=== PATIENT | male | born 1980 | race Caucasian/White ===

== ENCOUNTER 2023-04-15 23:31 | Inpatient (IN) | payer OTHER, SELFPAY ==
[2023-04-15 20:00] VITALS: BP 170/94
[2023-04-15 20:18] VITALS: BMI 25.3
[2023-04-15 20:37] LABS: % Basophils 0.4 % (0-2); % Eosinophils 0.1 % (0-6); % Immature Granulocytes 1.2 % (0-0.5); % Lymphocytes 2.2 % (20.5-51.1); % Monocytes 6.2 % (1.7-9.3); % Neutrophils 89.9 % (42.2-75.2); Absolute Basophils 0.1 10^3/uL (0-0.2); Absolute Immature Granulocytes 0.3 10^3/uL (0-0.05); Absolute Lymphocytes 0.6 10^3/uL (1.2-3.4); Absolute Monocytes 1.6 10^3/uL (0.1-0.6); Absolute Neutrophils 23.8 10^3/uL (1.4-6.5); Hematocrit 46.1 % (39.0-52.0); Mean Corp Hgb Conc. 34.7 g/dL (33.0-37.0); Mean Corpuscular Hgb 27.4 pg (27.0-31.0); Mean Corpuscular Volume 78.8 fL (80.0-94.0); Mean Platelet Volume 9.1 fL (7.4-10.4); Nucleated Red Blood Cells % 0 % (-); Platelet Count 520 10^3/uL (130-400); Red Blood Cell Count 5.85 10^6/uL (4.70-6.10); Red Cell Dist. Width 12.7 % (11.5-14.5); White Blood Cell Count 26.4 10^3/uL (4.8-10.8)
--- NOTE | 2023-04-15 20:38 | ED.GENMED ---
History of Present Illness
<JOHNY Adams - Last Filed: 04/15/23 22:54>
General
Chief Complaint: Withdrawal Symptoms
Source: patient
Exam Limitations: none
Time Seen by Provider: 04/15/23 20:21
Travel History
Have you had any contact with someone who has COVID-19?: No
Do you have any symptoms of coronavirus? Fever > 100 degrees, chills, cough, shortness of breath, sore throat, loss of taste or smell, muscle aches, or headache?: No
History of Present Illness
History of Present Illness:
This is a 42 year old male that [facility] with c/o withdraw. States that he uses Fentanyl 50 bags daily. States that he last used at 8pm last night. States that he is withdrawing. States that he is sweating, nausea, vomiting,
diarrhea, can't sit still. State that he has some chest discomfort with slight SOB and headache. States that he has chills, dizziness. Denies any fever, urinary burning.
Past History
<JOHNY Adams - Last Filed: 04/15/23 22:54>
Past History
ED Past Medical History: HTN, Psychiatric (Depression) and Other (Polysubstance abuse, Hep C, )
ED Past Surgical History: None and Urological (Renal calculus removal X 2)
Social History
Tobacco: Smoker
Alcohol: None
Drug: Other (Methamphetamine and fentanyl)
Personal: Single
[facility]: [facility]
Review of Systems
<JOHNY Adams - Last Filed: 04/15/23 22:54>
Review of Systems
All Other Systems: ROS reviewed and negative except as documented in HPI and ROS
Constitutional: Reports chills and other (Sweating); Denies fever
EENT: Reports no symptoms
Respiratory: Reports trouble breathing (Slight); Denies cough
Cardiac: Reports chest pain
ABD/GI: Reports abdominal pain, nausea, vomiting and diarrhea
: Reports no symptoms; Denies dysuria, frequency or urgency
Musculoskeletal: Reports no symptoms
Skin: Reports no symptoms
Neurological: Reports dizzy and headache
Psychiatric: Reports no symptoms
Phy Exam
<JOHNY Adams - Last Filed: 04/15/23 22:54>
General Physical Exam
General Presentation: mild distress
General age: appears stated age
General Skin: diaphoretic
General Habitus: normal
General Mental: alert
General Hydration: appears well hydrated
ENT Exam
ENT Exam: TM's normal, pharynx normal and neck supple
Eye Exam
Eye Exam: other (dilated but equal )
Cardiovascular Exam
Cardiovascular Exam: regular rate/rhythm, no edema, no murmur and normal peripheral pulses
Pulmonary Exam
Pulmonary Exam: lungs clear, no respiratory distress, no rales, chest non tender, no crackles, no rhonchi, no wheezing and no cough
Gastrointestinal Exam
Gastrointestinal Exam: soft, no organomegaly, no pulsatile mass, non distended, tender (Generalized tenderness with palpation) and other (Hypoactive bowel sounds)
Musculoskeletal Exam
Musculoskeletal Exam: full ROM and no edema
Skin Exam
Skin Exam: normal color, no rash, no petechia and diaphoresis
Psychiatric Exam
Psychiatric Exam: normal mood/affect
Scores
<JOHNY Adams - Last Filed: 04/15/23 22:54>
COW Clinical Opiate Withdrawal Scale
Resting Pulse Rate: 81-100
Sweating-over past 30min not from room temp or activity: Flushed or observable moistness on face
Restlessness-observation during assessment: Reports difficulty sittin
Pupil Size: Pupils moderately dilated
Bone or Joint Aches: Not present
Runny Nose or Tearing-not accounted for by cold/allergies: Not present
GI Upset-over last 30min: Multiple episodes of diarrhea or vomiting
Tremor-observation of outstretched hands: Tremor can be felt, but not observed
Yawning-observation during assessment: Yawning once or twice during assessment
Anxiety or Irritability: Patient reports increasing irritability or anxiousness
Gooseflesh Skin: Skin is smooth
Score: 14
Withdrawal Severity: Moderate Withdrawal, consider starting Suboxone
<Eusebio Palacios DO - Last Filed: 04/16/23 01:43>
COW Clinical Opiate Withdrawal Scale
Score: 14
Withdrawal Severity: Moderate Withdrawal, consider starting Suboxone
Course
<JOHNY Adams - Last Filed: 04/15/23 22:54>
Orders/Labs/Results
Orders:
Orders
04/15/23 20:24
Cardiac Monitoring- Treatment ONCE
IV Insert/Care/Rem.- Treatment PRN
Pulse Ox/spot Check [RESP] Urgent
Quantity: 1
04/15/23 20:27
Complete Blood Count/With Diff Urgent
Comprehensive Metabolic Panel Urgent
Troponin I Urgent
04/15/23 20:37
Urine Drug Abuse Screen Urgent
0.9% Sodium Chloride 1000 ml [Nss] 1,000 ml IV BOLUS
Lorazepam [Ativan] 1 mg IV NOW STA
Ondansetron Injectable [Zofran] 8 mg IV NOW STA
04/15/23 20:38
Urinalysis Reflex To Culture Urgent
04/15/23 20:52
Electrocardiogram (*1) Urgent
Reason for Study: Chest Pain
EKG- Treatment ONCE
04/15/23 21:11
Buprenorphine [Subutex] 8 mg SL NOW STA
04/15/23 22:45
Diphenhydramine [Benadryl] 25 mg IV NOW STA
Prochlorperazine [Compazine] 5 mg IV NOW STA
04/15/23 22:52
Urine Drug Abuse Screen Stat
Buprenorphine [Subutex] 16 mg SL NOW STA
04/15/23 22:53
0.9% Sodium Chloride 1000 ml [Nss] 1,000 ml IV BOLUS
04/15/23 23:00
Pantoprazole 80 mg/100 ml Nss [Protonix] 80 mg in 100 ml IV NOW
Pantoprazole [Protonix IV] 80 mg IV NOW STA
04/15/23 23:03
Admit/Transfer Patient As Directed
Co-Sign Provider:
Level of Care: Inpatient admission
Assign to:: ICU
Physician / Group: Rafaela
Diagnosis: Opioid withdrawal
Reason for Hospitalization: Opioid withdrawal
Expected length of stay greater than two midnights?: Yes
ELOS- Estimated Length of Stay in days: 6
I certify the patient meets the requirements for IP care: Yes
04/15/23 23:09
Code Status As Directed
Resuscitation Status: Full Code
04/15/23 23:15
CR Chest Portable - 1 View Stat
Comment:
Reason For Exam: leukocytosis
Reason Study Needs to be Portable: Patient Unstable
04/15/23 23:17
Lorazepam [Ativan] 1 mg IV Q4HPRN PRN
04/15/23 23:25
Alcohol Stat
Blood Culture Q30M
BRIANA Source: Blood/Venous
Specimen Description:
Blood Culture Q30M
BRIANA Source: Blood/Venous
Specimen Description:
04/15/23 23:27
0.9% Sodium Chloride [Nss (Preservative Free)] 0.5 ml IV Q4HPRN PRN
04/16/23 00:49
Buprenorphine [Subutex] 8 mg SL PRN PRN
Cefepime HCl [Maxipime] 2,000 mg IV Q8H
Clonidine [Catapres] 0.1 mg PO Q6
Dextrose 5%/0.45%Sodchl 1000ML [D5/0.45%NaCl] 1,000 ml IV 125 mls/hr
Loperamide [Imodium] 2 mg PO Q4HPRN PRN
Ondansetron Injectable [Zofran] 4 mg IV Q6HPRN PRN
Tizanidine [Zanaflex] 2 mg PO Q6HPRN PRN
VANCOMYCIN Pharmacy to Dose [VANCOCIN Pharmacy to Dose] 1 each Pharmacy To Prepare [Call Pharmacy To Prepare] 0 ml IV PER PROTOCOL
04/16/23 00:49
Electrocardiogram (*1) Routine
Reason for Study: QTc Monitoring
Comment: if not already done in ED
GASTROINTESTINAL CONSULT Routine
Consulting Provider: Lurdes Hernandez
Was physician already notified: Yes
Reason for consult: coffee ground emesis
Fentanyl, Urine Urgent
Ferritin Routine
Iron Routine
Magnesium Routine
Comment: can be add on
Total Iron Binding Routine
Activity As Directed
Activity Level: With Assistance
Capnography/ETCO2 As Directed
Clinical Opioid Withdrawal Scale (COWS) Q1
Pneumatic Compression Sleeves As Directed
Type: Knee high
Vital Signs As Directed
Frequency: Per unit guidelines
DX Deep Vein Thrombosis Video Routine
04/16/23 Breakfast
NPO
Allow oral meds: Yes
Allow clear liquids: Sips of Clears
Complete Blood Count/With Diff IN AM
Comprehensive Metabolic Panel IN AM
04/16/23 08:00
Buprenorphine [Subutex] 4 mg SL ONCE PRN PRN
Buprenorphine [Subutex] See Dose Instructions SL ONCE ONE
04/17/23 06:00
Complete Blood Count/With Diff IN AM
Comprehensive Metabolic Panel IN AM
04/17/23 08:00
Buprenorphine [Subutex] See Dose Instructions SL DAILY
04/18/23 06:00
Complete Blood Count/With Diff IN AM
Comprehensive Metabolic Panel IN AM
Abnormal Lab Results
04/15/23
20:27
WBC 26.4 H 10^3/uL
(4.8-10.8)
MCV 78.8 L fL
(80.0-94.0)
Plt Count 520 H 10^3/uL
(130-400)
Abs Immat Gran (auto) 0.3 H 10^3/uL
(0-0.05)
Absolute Neuts (auto) 23.8 H 10^3/uL
(1.4-6.5)
Absolute Lymphs (auto) 0.6 L 10^3/uL
(1.2-3.4)
Absolute Monos (auto) 1.6 H 10^3/uL
(0.1-0.6)
Immature Gran % 1.2 H %
(0-0.5)
Neutrophils % 89.9 H %
(42.2-75.2)
Lymphocytes % 2.2 L %
(20.5-51.1)
Glucose 161 H mg/dl
(70-99)
Calcium 10.3 H mg/dl
(8.4-10.2)
Alkaline Phosphatase 152 H U/L
(38-126)
Total Protein 9.2 H g/dl
(6.3-8.2)
04/15/23 20:27
04/15/23 20:27
Leukocytosis, Plt elevated. Glucose nonfasting. Alk phos elevation. Total protein elevation. Troponin 0.020
Vital Signs
Initial and Last Documented VS:
Initial Vital Signs
Temp Pulse Resp BP Pulse Ox
100.2 F 76 24 170/94 98
04/15/23 20:00 04/15/23 20:00 04/15/23 20:00 04/15/23 20:00 04/15/23 20:00
Last Documented Vital Signs
Temp Pulse Resp BP Pulse Ox
100.2 F 111 36 149/92 95
04/16/23 01:14 04/16/23 00:30 04/16/23 00:30 04/16/23 00:00 04/16/23 01:33
Rag Cutting Machine Tender consulted with Physician
Rag Cutting Machine Tender consulted with physician?: Yes
Name of Physician Consulted: Dr. Palacios
<Eusebio Palacios, DO - Last Filed: 04/16/23 01:43>
Orders/Labs/Results
Orders:
Orders
04/15/23 20:24
Cardiac Monitoring- Treatment ONCE
IV Insert/Care/Rem.- Treatment PRN
Pulse Ox/spot Check [RESP] Urgent
Quantity: 1
04/15/23 20:27
Complete Blood Count/With Diff Urgent
Comprehensive Metabolic Panel Urgent
Troponin I Urgent
04/15/23 20:37
Urine Drug Abuse Screen Urgent
0.9% Sodium Chloride 1000 ml [Nss] 1,000 ml IV BOLUS
Lorazepam [Ativan] 1 mg IV NOW STA
Ondansetron Injectable [Zofran] 8 mg IV NOW STA
04/15/23 20:38
Urinalysis Reflex To Culture Urgent
04/15/23 20:52
Electrocardiogram (*1) Urgent
Reason for Study: Chest Pain
EKG- Treatment ONCE
04/15/23 21:11
Buprenorphine [Subutex] 8 mg SL NOW STA
04/15/23 22:45
Diphenhydramine [Benadryl] 25 mg IV NOW STA
Prochlorperazine [Compazine] 5 mg IV NOW STA
04/15/23 22:52
Urine Drug Abuse Screen Stat
Buprenorphine [Subutex] 16 mg SL NOW STA
04/15/23 22:53
0.9% Sodium Chloride 1000 ml [Nss] 1,000 ml IV BOLUS
04/15/23 23:00
Pantoprazole 80 mg/100 ml Nss [Protonix] 80 mg in 100 ml IV NOW
Pantoprazole [Protonix IV] 80 mg IV NOW STA
04/15/23 23:03
Admit/Transfer Patient As Directed
Co-Sign Provider:
Level of Care: Inpatient admission
Assign to:: ICU
Physician / Group: Rafaela
Diagnosis: Opioid withdrawal
Reason for Hospitalization: Opioid withdrawal
Expected length of stay greater than two midnights?: Yes
ELOS- Estimated Length of Stay in days: 6
I certify the patient meets the requirements for IP care: Yes
04/15/23 23:09
Code Status As Directed
Resuscitation Status: Full Code
04/15/23 23:15
CR Chest Portable - 1 View Stat
Comment:
Reason For Exam: leukocytosis
Reason Study Needs to be Portable: Patient Unstable
04/15/23 23:17
Lorazepam [Ativan] 1 mg IV Q4HPRN PRN
04/15/23 23:25
Alcohol Stat
Blood Culture Q30M
BRIANA Source: Blood/Venous
Specimen Description:
Blood Culture Q30M
BRIANA Source: Blood/Venous
Specimen Description:
04/15/23 23:27
0.9% Sodium Chloride [Nss (Preservative Free)] 0.5 ml IV Q4HPRN PRN
04/16/23 00:49
Buprenorphine [Subutex] 8 mg SL PRN PRN
Cefepime HCl [Maxipime] 2,000 mg IV Q8H
Clonidine [Catapres] 0.1 mg PO Q6
Dextrose 5%/0.45%Sodchl 1000ML [D5/0.45%NaCl] 1,000 ml IV 125 mls/hr
Loperamide [Imodium] 2 mg PO Q4HPRN PRN
Ondansetron Injectable [Zofran] 4 mg IV Q6HPRN PRN
Tizanidine [Zanaflex] 2 mg PO Q6HPRN PRN
VANCOMYCIN Pharmacy to Dose [VANCOCIN Pharmacy to Dose] 1 each Pharmacy To Prepare [Call Pharmacy To Prepare] 0 ml IV PER PROTOCOL
04/16/23 00:49
Electrocardiogram (*1) Routine
Reason for Study: QTc Monitoring
Comment: if not already done in ED
GASTROINTESTINAL CONSULT Routine
Consulting Provider: Lurdes Hernandez
Was physician already notified: Yes
Reason for consult: coffee ground emesis
Fentanyl, Urine Urgent
Ferritin Routine
Iron Routine
Magnesium Routine
Comment: can be add on
Total Iron Binding Routine
Activity As Directed
Activity Level: With Assistance
Capnography/ETCO2 As Directed
Clinical Opioid Withdrawal Scale (COWS) Q1
Pneumatic Compression Sleeves As Directed
Type: Knee high
Vital Signs As Directed
Frequency: Per unit guidelines
DX Deep Vein Thrombosis Video Routine
04/16/23 Breakfast
NPO
Allow oral meds: Yes
Allow clear liquids: Sips of Clears
Complete Blood Count/With Diff IN AM
Comprehensive Metabolic Panel IN AM
04/16/23 08:00
Buprenorphine [Subutex] 4 mg SL ONCE PRN PRN
Buprenorphine [Subutex] See Dose Instructions SL ONCE ONE
04/17/23 06:00
Complete Blood Count/With Diff IN AM
Comprehensive Metabolic Panel IN AM
04/17/23 08:00
Buprenorphine [Subutex] See Dose Instructions SL DAILY
04/18/23 06:00
Complete Blood Count/With Diff IN AM
Comprehensive Metabolic Panel IN AM
Abnormal Lab Results
04/15/23
20:27
WBC 26.4 H 10^3/uL
(4.8-10.8)
MCV 78.8 L fL
(80.0-94.0)
Plt Count 520 H 10^3/uL
(130-400)
Abs Immat Gran (auto) 0.3 H 10^3/uL
(0-0.05)
Absolute Neuts (auto) 23.8 H 10^3/uL
(1.4-6.5)
Absolute Lymphs (auto) 0.6 L 10^3/uL
(1.2-3.4)
Absolute Monos (auto) 1.6 H 10^3/uL
(0.1-0.6)
Immature Gran % 1.2 H %
(0-0.5)
Neutrophils % 89.9 H %
(42.2-75.2)
Lymphocytes % 2.2 L %
(20.5-51.1)
Glucose 161 H mg/dl
(70-99)
Calcium 10.3 H mg/dl
(8.4-10.2)
Alkaline Phosphatase 152 H U/L
(38-126)
Total Protein 9.2 H g/dl
(6.3-8.2)
04/15/23 20:27
04/15/23 20:27
Vital Signs
Initial and Last Documented VS:
Initial Vital Signs
Temp Pulse Resp BP Pulse Ox
100.2 F 76 24 170/94 98
04/15/23 20:00 04/15/23 20:00 04/15/23 20:00 04/15/23 20:00 04/15/23 20:00
Last Documented Vital Signs
Temp Pulse Resp BP Pulse Ox
100.2 F 111 36 149/92 95
04/16/23 01:14 04/16/23 00:30 04/16/23 00:30 04/16/23 00:00 04/16/23 01:33
<JOHNY Adams - Last Filed: 04/15/23 22:54>
MDM/Problems Addressed
Differential Diagnosis Includes:
Withdraw symptoms.
MDM/Problems Addressed:
This is a 42 year old male that is [facility] with withdraw symptoms. States that he does 50 bags of Fentanyl daily. States that his last use was last night at 8pm and he [facility] the [facility] at around midnight. States that he has abd
pain, nausea, vomiting, diarrhea, can't sit still, and he is sweating.
Will get labs, Give IV fluids and Suboxone.
Back into see patient. Patient is continuing to vomit and have severe withdraw symptoms. Will admit. Hospitalist notified.
Chronic conditions affecting care:
NA
Acute Exacerbation and/or Progression of Chronic Illness: Other (Substance abuse)
<JOHNY Adams - Last Filed: 04/15/23 22:54>
*Pulse Oximetry
Patient hypoxic: no
*Corporate Strategy Associate Interpretation
Rate: normal
Heart Rate: 85
Rhythm: sinus
*Critical Care Note
Total Time (30-74mins, 75-104mins- exclusive of procedures): Not Applicable
ED Attending Note
<JOHNY Adams - Last Filed: 04/15/23 22:54>
-
Portions of this chart may have been created with voice recognition software.� Occasional wrong word or��sound alike� substitutions may have occurred due to the inherent limitations of voice recognition software.
<Eusebio Palacios DO - Last Filed: 04/16/23 01:43>
ED Attending Note
I performed the substantive portion of visit, reviewed & personally made and approve the management plan that is documented in note by myself or AYLIN.: Yes
ED Attending Note:
I have reviewed and agree with history and treatment plan by Yolanda Jacob. Patient with heroin withdrawal, persistent vomiting. Do not suspect sepsis. Admit to hospitalist for further IV hydration and control of withdrawal.
Discharge Plan
Departure
Patient Disposition: Admit
Date of Disposition: 04/15/23
Time of Disposition: 22:50
Admit to: IMU
Presentation/result/management discussed w/ accepting MD/DO: Hospitalist
Patient with high blood pressure during this ER visit?: Yes
Condition: Good
Discharge Problem:
Severe drug withdrawal syndrome
Interventions
Interventions:
*Risk Screen - Suicide Last Done: 04/16/23 01:27
*General Assessment Last Done: 04/15/23 20:00
*Neglect/Abuse Screening Last Done: 04/15/23 20:00
ED- Fall Risk Assessment Last Done: 04/15/23 20:00
*ED COVID-19 Vaccine History Last Done: 04/16/23 01:27
*Nursing Disposition Last Done: 04/16/23 00:45
ED- Neurological Assessment Last Done: 04/15/23 23:00
ED-Psychological Assessment Last Done: 04/15/23 20:19
Discharge Date and Time
Discharge Date/Time: 04/16/23 00:45
[2023-04-15 20:49] LABS: ALT (SGPT) 33 U/L (0-50); AST (SGOT) 27 U/L (17-59); Alkaline Phosphatase 152 U/L (38-126); Blood Urea Nitrogen 19 mg/dl (9-20); Calcium 10.3 mg/dl (8.4-10.2); Carbon Dioxide 23 mmol/L (22-30); Chloride 99 mmol/L (98-107); Estimated Creatinine Clearance 90 ml/min; Glucose 161 mg/dl (70-99); Potassium 3.7 mmol/L (3.5-5.1); Sodium 139 mmol/L (135-145); Total Bilirubin 1.2 mg/dl (0.2-1.3); Total Protein 9.2 g/dl (6.3-8.2); eGFR > 60.00
[2023-04-15] MEDS: NSS 1000 IV ×2 (21:14→23:19)
[2023-04-15] MEDS: ZOFRAN 8 MG IV (21:15)
[2023-04-15] MEDS: SUBUTEX 8 MG SL (21:23)
[2023-04-15 21:27] VITALS: BP 141/76
[2023-04-15 22:41] VITALS: BP 155/89
--- NOTE | 2023-04-15 22:50 | HPS.HSE ---
Family Physician
-
Family Physician: Facility [facility]
Chief Complaint
-
Opioid withdrawal
History of Present Illness
42-year-old male with no significant past medical history other than depression who presents from intermediate with complaints of opiate withdrawal. Patient was incarcerated yesterday. He reports that he uses 50 bags of fentanyl daily. He complains of
nausea, vomiting, diaphoresis. He has severe tremors and restlessness. He complains of chest pain and shortness of breath as well as headache. Offers no other acute complaints.
Medical History
Past Medical History
Past Medical History: Reports Other (as per HPI)
Past Surgical History: Reports Other (N/A)
Social History
Tobacco: Smoker
Alcohol: None
Drug: Narcotics
Family History
Family History: Not pertinent
Allergies / Home Medications
Allergies reflects when Allergies were last updated in [facility].
Home Medications with original date entered in [facility]
Allergy/Medication List:
Allergies
Allergy/AdvReac Type Severity Reaction Status Date / Time
shrimp Allergy Unknown Verified 04/15/23 19:59
Home Medications
acetaminophen 300 mg-codeine 30 mg tablet 0.5 tab PO BID PRN PAIN 04/15/23
clonidine HCl 0.1 mg tablet 0.1 mg PO TID 04/15/23
loperamide 2 mg tablet 2 mg PO TID 04/15/23
ondansetron 4 mg disintegrating tablet 4 mg PO Q6H PRN NAUSEA 04/15/23
Review of Systems
-
History Source: Patient
A 12 point ROS was completed and negative except as noted: Yes
Physical Exam
Vital Signs
Vital Signs
Temp Pulse Resp BP Pulse Ox
100.2 F 78 21 141/76 98
04/15/23 20:00 04/15/23 22:15 04/15/23 22:15 04/15/23 21:27 04/15/23 22:00
Physical Exam
General: Other (.)
Laboratory Results
-
04/15/23 20:27
04/15/23 20:27
Laboratory Results
Total Bilirubin 1.2 mg/dl (0.2-1.3) 04/15/23 20:27
AST 27 U/L (17-59) 04/15/23 20:27
ALT 33 U/L (0-50) 04/15/23 20:27
Alkaline Phosphatase 152 U/L (38-126) H 04/15/23 20:
Troponin I 0.020 ng/ml 04/15/23 20:27
Impression/Plan
-
Gen: Not in acute respiratory distress, Awake and alert, NCAT
Eyes: EOMI, PERRLA, no scleral icterus.
Neck: supple.
CV: RRR, +S1/S2, no m/r/g.
Resp: CTAB, no rales, wheezes, or rhonchi.
Abd: +BS, soft, NT, ND
Skin: No rashes. +diaphoresis
Neuro: CN 2-12 intact, non-focal, tremulous.
Psych: anxious
Acute opioid withdrawal:
-currently hemodynamically stable but with vomiting, hopefully pt can take PO meds
-1L NS ordered by ER, will order another 1L NS wide open followed by D5 1/2NS @ 125cc/hr
-COWS protocol with subutex
-Clonidine 0.1mg PO Q6H
-Ativan IV PRN
-if pt's withdrawal does not improve with above management, would start Precedex gtt (discussed with ICU AP over the phone)
Vomiting with coffee grounds:
-Patient was vomiting excessively in the ER. Appears biliary but there are some coffee grounds. Hemoglobin noted (16.0) but I suspect the patient is intravascularly volume depleted.
-start Protonix gtt, trend Hb
-MCV is low at 78, check Fe studies
-c/s GI
-trend Hb
-could easily be esophageal in origin (Aiyana-cantu tear from vomiting)
-NPO/IVFs
Leukocytosis:
-temp just below fever, 100.2 F
-WBC 26.4 with L shift
-while leukocytosis could be reactive due to withdrawal, in a pt with IVDA check BCxs and start empiric Vanco/Cefepime
-check CXR
Total critical care time spent = 43 min
[2023-04-15 23:00] VITALS: BP 150/76
[2023-04-15] MEDS: BENADRYL 25 MG IV (23:04)
[2023-04-15] MEDS: COMPAZINE 5 MG IV (23:06)
[2023-04-15] MEDS: SUBUTEX 16 MG SL (23:16)
[2023-04-15] MEDS: PROTONIX IV 80 MG IV (23:35)
[2023-04-15] MEDS: PROTONIX 100 IV (23:40)
[2023-04-15 23:53] LABS: Alcohol None Detected
[2023-04-16] VITALS (40 sets, daily range): BP systolic 111–173; BP diastolic 66–149; BMI 24.1
[2023-04-16] MEDS: D5/0.45%NACL 1000 IV ×3 (01:04→15:29)
[2023-04-16] MEDS: ZOFRAN 4 MG IV (01:04)
[2023-04-16] MEDS: STERILE WATER FOR INJECTION 10 ML IV ×4 (01:05→23:36)
[2023-04-16] MEDS: MAXIPIME 2000 MG IV ×4 (01:05→23:36)
[2023-04-16] MEDS: SUBUTEX 8 MG SL (01:16)
[2023-04-16] MEDS: OFIRMEV 100 IV (01:20)
--- NOTE | 2023-04-16 01:40 | PTCARENOTE ---
Addendum entered by Estela Gaytan RN 04/16/23 01:44:
subutex given as per order for cows score.
Original Note:
pt received from er- aox4, restless and anxious see cows flowsheet. able to follow commands and cooperative at times. all safety precautions in place. [facility] guards at bedside, shackled to bed- pt with good pulses, extremities warm to touch. pt
diaphoretic, tachycardiac in 120s on arrival, bp elevated. priscilla cortes at bedside. iv ofirmev administered, protonix gtt and ivf infusing as per order. plan of care discussed with priscilla cortes. pt educated- verbalized understanding. on 2LNC, co2
monitoring. pt with nausea, vomiting. see assessment for further details.
[2023-04-16] MEDS: CATAPRES PO ×2 (01:44→06:42)
[2023-04-16] MEDS: VANCOCIN 540 MG IV (01:48)
[2023-04-16] MEDS: PRECEDEX 100 IV ×2 (02:06→10:32)
[2023-04-16] MEDS: ATIVAN 1 MG IV ×2 (02:50→21:10)
[2023-04-16 04:05] LABS: % Basophils 0.1 % (0-2); % Eosinophils 0.3 % (0-6); % Immature Granulocytes 0.5 % (0-0.5); % Lymphocytes 3.5 % (20.5-51.1); % Monocytes 7.4 % (1.7-9.3); % Neutrophils 88.2 % (42.2-75.2); Absolute Eosinophils 0.1 10^3/uL (0-0.7); Absolute Immature Granulocytes 0.1 10^3/uL (0-0.05); Absolute Lymphocytes 0.7 10^3/uL (1.2-3.4); Absolute Monocytes 1.4 10^3/uL (0.1-0.6); Absolute Neutrophils 16.8 10^3/uL (1.4-6.5); Hematocrit 41.2 % (39.0-52.0); Hemoglobin 14.3 g/dL (13.0-18.0); Mean Corp Hgb Conc. 34.7 g/dL (33.0-37.0); Mean Corpuscular Hgb 27.8 pg (27.0-31.0); Mean Platelet Volume 9.5 fL (7.4-10.4); Nucleated Red Blood Cells % 0 % (-); Platelet Count 466 10^3/uL (130-400); Red Blood Cell Count 5.15 10^6/uL (4.70-6.10); Red Cell Dist. Width 12.6 % (11.5-14.5); White Blood Cell Count 19.1 10^3/uL (4.8-10.8)
[2023-04-16 04:21] LABS: PT 14.3 Sec (11.4-14.6)
[2023-04-16 04:22] LABS: APTT 31.7 Sec (23.4-35.0); INR 1.13
--- NOTE | 2023-04-16 04:23 | PTCARENOTE ---
pt afebrile, on precedex gtt, priscilla cortes remains updated. all labs and urine sent. pt less restless at this time. further assessment unchanged. all safety precautions in place.
[2023-04-16 04:25] LABS: Lactic Acid 1.3 mmol/L (0.7-2.0)
[2023-04-16 04:57] LABS: ALT (SGPT) 18 U/L (0-50); AST (SGOT) 24 U/L (17-59); Albumin 4.1 g/dl (3.5-5.0); Alkaline Phosphatase 114 U/L (38-126); Blood Urea Nitrogen 19 mg/dl (9-20); Calcium 9.5 mg/dl (8.4-10.2); Carbon Dioxide 21 mmol/L (22-30); Chloride 107 mmol/L (98-107); Direct Bilirubin 0.2 mg/dl (0.0-0.4); Estimated Creatinine Clearance 98 ml/min; Glucose 127 mg/dl (70-99); Iron 38 ug/dl (49-181); Magnesium 1.9 mg/dl (1.6-2.3); Sodium 144 mmol/L (135-145); Total Protein 7.6 g/dl (6.3-8.2); eGFR > 60.00
[2023-04-16 05:06] LABS: Percent Saturation 15 % (20-50); Total Iron Binding Capacity 249 ug/dl (261-462)
[2023-04-16 05:15] LABS: Amphetamines Negative (Negative); Barbiturates Negative (Negative); Benzodiazepines Negative (Negative); Buprenorphine Positive (Negative); Cocaine Positive (Negative); Opiates Positive (Negative)
[2023-04-16 05:16] LABS: Marijuana Negative (Negative); Methadone Negative (Negative); Methamphetamines Negative (Negative); Phencyclidine Negative (Negative); Tricyclic Antidepressants Negative (Negative)
[2023-04-16] MEDS: APRESOLINE 10 MG IV ×2 (05:18→10:32)
[2023-04-16 05:23] LABS: Urine Albumin Trace (Neg - Trace); Urine Bilirubin 1+ (Negative); Urine Character Clear (Clear); Urine Color Yellow; Urine Glucose Negative (Negative); Urine Ketone 3+ (Negative); Urine Leukocyte Negative (Negative); Urine Nitrite Negative (Negative); Urine Occult Blood Negative (Negative); Urine Urobilinogen Negative (Neg - 1+)
[2023-04-16 05:25] LABS: Fentanyl, Urine Positive (Negative)
--- NOTE | 2023-04-16 07:04 | CON.INTV ---
Consultation
Consultation Request
Date/Time Consultation Requested: 04/16/23
Date/Time Consultation Performed: 04/16/23
Medical History
-
History of Present Illness:
Patient is a 42-year-old male with h/o polysubstance abuse, depression who presents to ED from senior care with complaints of diaphoresis, nausea/vomiting, diarrhea, tremors/restlessness with clinical suspicion of acute opiate withdrawal.� Patient was
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 He is admitted to ICU for acute management of
opiate withdrawal.
Past Medical History
Past Medical History: Psychiatric and Other
Past Surgical History: None
Social History
Tobacco: Smoker
Alcohol: None
Drug: Marijuana, Cocaine and Narcotics
Family History
Family History: Reviewed & Not Pertinent
Allergies / Home Medications
Allergies
Allergy/AdvReac Type Severity Reaction Status Date / Time
shrimp Allergy Unknown Verified 04/15/23 19:59
Home Medications
Medication Instructions Recorded Confirmed Last Taken Type
acetaminophen 300 mg-codeine 30 mg 0.5 tab PO BID PRN PAIN 04/15/23 04/15/23 Unknown History
tablet
clonidine HCl 0.1 mg tablet 0.1 mg PO TID 04/15/23 04/15/23 Unknown History
loperamide 2 mg tablet 2 mg PO TID 04/15/23 04/15/23 Unknown History
ondansetron 4 mg disintegrating 4 mg PO Q6H PRN NAUSEA 04/15/23 04/15/23 Unknown History
tablet
Review of Systems
-
History Source: Patient
All other systems: Negative unless noted
Vitals / Labs / Diagnostic Testing
Vital Signs
Temp Pulse Resp BP Pulse Ox
99.9 F 120 24 142/82 97
04/16/23 02:51 04/16/23 06:30 04/16/23 06:30 04/16/23 06:00 04/16/23 06:30
Lab Data
04/16/23 03:52
04/16/23 03:52
Laboratory Results
04/16/23
03:52
PT 14.3
INR 1.13
APTT 31.7
Diagnostic Testing:
Physical Exam
-
HEENT: Normocephalic, Anicteric and Moist Mucous Membranes
Cardiovascular: S1/S2 and Regular Rhythm
Respiratory: Clear and Non-Labored Respirations
GI: Soft, Non Distended and Non Tender
Neurology: Awake, Alert, Tremors and Other (diaphoretic, restless)
Skin: Warm
General: Poor Appetite and Other (ill appearing, in restraints)
Assessment
-
Patient is a 42-year-old male with h/o polysubstance abuse, depression who presents to ED from senior care with complaints of diaphoresis, nausea/vomiting, diarrhea, tremors/restlessness with clinical suspicion of acute opiate withdrawal.� Patient was
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 He is admitted to ICU for acute management of
opiate withdrawal.
Acute severe opioid withdrawal requiring ICU care/monitoring
Severe acute opiate abuse history, IV fentanyl use, '50 bags daily'
Vomiting with coffee grounds with likely acute dehydration
Leukocytosis
Low grade fever
Thrombocytosis
Iron deficiency
Ketonuria
UDS + fent/cocaine/buprenorphine/opiates
Sinus tachycardia
Conditions present MANAGER MALL
Polysubstance abuse (Meth/Fent)
Incarcerated status
Depression
HTN
Hepatitis C
Renal calculus removal X 2
Cigarette smoker
Plan
Acute opiate withdrawal requiring IV treatment and q1 monitoring with COWS
Prompt treatment needed to prevent potential risk for neurologic end organ damage including seizure/coma/
Baseline MS reported as aaox 3
Psychiatric history noted above including depression, severe drug history
UDS + fent/cocaine/buprenorphine/opiates
Denies pain at this time.
Pain/sedation: on opiate w/d protocol, reviewed with pharmacy/care team
RASS goals: 0
In restraints, with guards
Hemodynamically stable, not requiring pressors.
Tach noted due to w/d
Cardiac history reviewed--HTN
No prior ECHO for review
Resume home meds, monitor on telemetry
Monitor QT
Oxygen needs: stable on RA
Prior history of lung disease: none
Smoker, cessation encouraged, NRT as needed
Supplemental O2 as indicated to maintain sats > 89%
CXR/CT reviewed indicating NAD
NPO, resume diet when able
Hep C positive, history of IVDU
Implementation Specialist recommendations
Aspiration precautions, HOB > 30 degrees
Speech therapy eval can be considered if at elevated risk
GI prophylaxis if indicated for mechanical ventilation >48 hours, prior history of GERD, stress ulcer formation in the critically ill
Creat at baseline, no history of renal disease
Void trials
Follow urine output, critical I/Os
Replete electrolytes as needed
No signs/symptoms suspicious for infectious etiology at this time
Observe off antibiotics for now
Follow fever trend, WBC count
CBC stable, no signs of bleeding or coagulopathy.
DVT prophylaxis as assessed based on risk, including mechanical SCDs
Can transfuse if indicated for Hb <7, plt < 10
INR 1.13
No prior h/o diabetes or thyroid disease
Monitor accuchecks PRN/SS coverage if needed
We will follow
Diagnostic Data
Chest X-Ray: 04/15/23- No acute cardiopulmonary process.
CT Scan:
Echo/EKG 04/15/23- QTc Int : 506 ms/NSR @78
PFT's:
Reports and relevant images were personally reviewed.
-----
Critical Care time 50 mins -- The patient is admitted for acute critical illness for the treatment of vital organ failure and/or prevention of further life-threatening conditions. Total care includes time spent in review of history, physical exam,
medications, hemodynamic/ventilator parameters, laboratory data, imaging and discussion with house staff, pharmacy, respiratory therapy, salesperson flying squad, and nursing.
--- NOTE | 2023-04-16 07:55 | W.PN.HOSP.TC ---
Today's Communication/Plan
-
Continue opioid withdrawal protocol
Psychiatry consult
Start clears
Assessment / Plan
Assessment / Plan
Gen-AAOx3, in acute distress with shivering
HEENT-NC, AT, anicteric, clear oral mm
Neck-supple
CV-reg, no M, +S1/S2, tachycardic
Lungs-clear B/L
Abd-soft, NT, ND
Ext-no edema
Musculoskeletal-no cyanosis, clubbing
Skin-warm and dry
Neuro-grossly non-focal
Psych-calm, cooperative
Acute opioid withdrawal syndrome -continue close monitoring in ICU. Continue COWS protocol. Continue Precedex.
Sepsis -possibly related to acute opioid withdrawal syndrome. No obvious focus of infection. Check procalcitonin. Await cultures. Continue empiric antibiotics for now.
Coffee-ground emesis -hemoglobin relatively stable. Monitor. Continue IV Protonix. Differential diagnosis includes Aiyana-Krause tear from vomiting. GI has been consulted.
Chronic opiate dependence/abuse -consult psychiatry.
Full code.
Anticipated Discharge: > 48 hours
Subjective/Interval History
-
Date of Service: April 16, 2023
Patient seen and examined. Complaining of opioid withdrawal symptoms.
Objective Data
-
Labs:
Laboratory Results
04/15/23 04/16/23
20:27 03:52
WBC 26.4 H 19.1 H
Hgb 16.0 14.3
Hct 46.1 41.2
Plt Count 520 H 466 H
PT 14.3
INR 1.13
APTT 31.7
Sodium 139 144
Potassium 3.7 4.0
Chloride 99 107
Carbon Dioxide 23 21 L
BUN 19 19
Creatinine 1.2 1.1
Glucose 161 H 127 H
Calcium 10.3 H 9.5
Total Bilirubin 1.2 1.0
AST 27 24
ALT 33 18
Alkaline Phosphatase 152 H 114
Vital Signs:
Vital Signs
Temp Pulse Resp BP Pulse Ox
99.9 F 120 24 142/82 97
04/16/23 02:51 04/16/23 06:30 04/16/23 06:30 04/16/23 06:00 04/16/23 06:30
I&O
04/15/23 04/16/23 04/17/23
06:59 06:59 06:59
Intake Total 842 / 842
Output Total 250 / 250
Balance 592 / 592
Review of Systems
-
History Source: Patient
All other systems: Reviewed and negative
--- NOTE | 2023-04-16 09:00 | CON.GI ---
Addendum entered and electronically signed by Abraham Ko MD 04/16/23 13:40:
I saw and examined the patient.
The POTATO PICKER or PA's note was reviewed and I agree with the note.
Comment:
Pt with opiate withdrawal, denies have any more emesis. Has no gerd or abdominal pain as an outpatient
shaking, oriented
hgb stable
impression
self limited emesis likely secondary to withdrawal
plan:
advance diet as tolerated
PPI
no need for any further GI evaluation unless symptoms become chronic
will sign off
Original Note:
Consultation
-
Date/Time Consultation Requested: 04/16/2348
Date/Time Consultation Performed: 04/16/2345
Requesting Provider: Dr. Russo
Performing Provider: Dr. Abraham Ko / Lupe Ramos PA-C
Reason for Consultation: coffee grounds emesis
Medical History
Chief Complaint / HPI
Chief Complaint: coffee grounds emesis
History of Present Illness:
This is a 42-year-old male with a past medical history of depression and drug abuse who is recently incarcerated, who presented to the ER yesterday 04/15/23 with complaints of opiate withdrawal.�He c/o nausea, vomiting, sweats, chest pain, headache,
shortness of breath and abdominal pain. He admits to drug use of 50 bags of fentanyl daily, last used on 04/13.�He had an episode of coffee grounds emesis yesterday, but has had no further vomiting. He does c/o nausea. He has never had an endoscopy or
colonoscopy. He would occasionally get heartburn, but takes no medications for this. No family history of any GI malignancies. Labs reviewed: Hgb stable at 14.3, MCV 78.8, platelets 466, PT 14.3, INR 1.13, BUN 19, creatinine 1.1. WBC count elevated
and patient is on IV antibiotics, blood cultures still pending. Iron studies reveal slightly low serum iron (38), TIBC (249), and %sat (15). Ferritin WNL (182).
Past Medical History
Past Medical History: Other (depression, drug abuse)
Past Surgical History: None
Social History
Tobacco: Non-Smoker
Alcohol: Occasional
Drug: Other (Methamphetamine, fentanyl)
Living: Residential
Family History
Family History: Other (No family history of GI malignancies)
Allergies / Home Medications
Allergy/AdvReac Type Severity Reaction Status Date / Time
shrimp Allergy Unknown Verified 04/15/23 19:59
Medication Instructions Recorded
acetaminophen 300 mg-codeine 30 mg 0.5 tab PO BID PRN PAIN 04/15/23
tablet
clonidine HCl 0.1 mg tablet 0.1 mg PO TID 04/15/23
loperamide 2 mg tablet 2 mg PO TID 04/15/23
ondansetron 4 mg disintegrating 4 mg PO Q6H PRN NAUSEA 04/15/23
tablet
Review of Systems
-
History Source: Patient
All other systems: A 12 pt ROS was Negative except as stated above in HPI
Vital Signs
Temp Pulse Resp BP Pulse Ox
101 F H 120 24 142/82 97
04/16/23 08:44 04/16/23 06:30 04/16/23 06:30 04/16/23 06:00 04/16/23 06:30
Physical Exam
Exam
General: Well Developed, Well Nourished and Other (+patient is tremulous but conversant)
Respiratory: Clear
Cardiac: Regular Rhythm
GI: Soft, Non Tender, Non Distended and Normal Bowel Sounds
Neuro: Awake, Alert and Oriented
Psych: Agitated
Results
WBC 19.1 10^3/uL (4.8-10.8) H 04/16/23 03:52
Hgb 14.3 g/dL (13.0-18.0) 04/16/23 03:52
Hct 41.2 % (39.0-52.0) 04/16/23 03:52
MCV 80.0 fL (80.0-94.0) 04/16/23 03:52
Plt Count 466 10^3/uL (130-400) H 04/16/23 03:52
Absolute Neuts (auto) 16.8 10^3/uL (1.4-6.5) H 04/16/23 03:52
PT 14.3 Sec (11.4-14.6) 04/16/23 03:52
INR 1.13 04/16/23 03:52
APTT 31.7 Sec (23.4-35.0) 04/16/23 03:52
Sodium 144 mmol/L (135-145) 04/16/23 03:52
Potassium 4.0 mmol/L (3.5-5.1) 04/16/23 03:52
Chloride 107 mmol/L (98-107) 04/16/23 03:52
Carbon Dioxide 21 mmol/L (22-30) L 04/16/23 03:52
BUN 19 mg/dl (9-20) 04/16/23 03:52
Creatinine 1.1 mg/dL (0.7-1.3) 04/16/23 03:52
Calcium 9.5 mg/dl (8.4-10.2) 04/16/23 03:52
Total Bilirubin 1.0 mg/dl (0.2-1.3) 04/16/23 03:52
AST 24 U/L (17-59) 04/16/23 03:52
ALT 18 U/L (0-50) 04/16/23 03:52
Alkaline Phosphatase 114 U/L (38-126) 04/16/23 03:52
Diagnostic Image Results:
Prior GI Procedures:
EGD: never
Colonoscopy: never
Assessment / Plan
-
42-year-old male with history of depression and drug abuse and recently incarcerated, who presented to the ER yesterday 04/15/23 with complaints of opiate withdrawal.�He c/o nausea, vomiting, sweats, chest pain, headache, shortness of breath and
abdominal pain. He admits to drug use of 50 bags of fentanyl daily, last used on 04/13.�He had an episode of coffee grounds emesis yesterday, but has had no further vomiting since. He does c/o nausea. Labs reviewed: Hgb stable at 14.3, MCV 78.8,
platelets 466, PT 14.3, INR 1.13, BUN 19, creatinine 1.1. WBC count elevated and patient is on IV antibiotics, blood cultures still pending. Iron studies reveal slightly low serum iron (38), TIBC (249), and %sat (15). Ferritin WNL (182).
Coffee grounds emesis, possibly to due Aiyana Krause tear from vomiting due to acute opiate withdrawal
-Hgb stable, currently 14.3
-Hemodynamically stable
-Continue to trend H&H
-Iron studies very slightly low, with a normal ferritin
-Continue IV PPI BID
-Continue withdrawal protocol per hospitalist/hog feeder
-Antiemetics PRN
-Advance diet to clear liquids
We will follow.
-
-
Thank you for consultation and allowing me to participate in the patient's care. Please call the monitor worker GI physician during the after hours with any questions or concerns.
--- NOTE | 2023-04-16 09:06 | PHA.VAN.IN ---
Assessment
- Assessment
Renal Function: Appears similar to baseline
Maximum Temperature: 101
Minimum Temperature: 99.9
Concomitant Antimicrobials: Cefepime
AUC Dosing Plan
- Dosing Variables
Dosing Weight (kg): 80.5
Dosing CrCl (ml/min): 98
Vd coefficient (L/kg): 0.7
- Empiric Dosing
Initial / Loading Dose: 2000mg
Maintenance Regimen: 1250mg Q12H
Estimated AUC (mcg*h/mL): 551
Estimated Peak (mcg*h/mL): 34.5
Estimated Trough (mcg/ml): 14
Estimated Half Life (H): 8.1
- Monitoring
No levels ordered at this time: Will continue to monitor. Order levels in next few days
Pharmacokinetics Vancomycin I
- -
Patient Age: 42
Patient Sex: Male
Vancomycin Day #: 1
Indication: Bacteremia
Requesting Provider: Florence Schneider
Pertinent Antimicrobial Allergies:
NKDA
Height / Weight:
Height 6 ft
Actual Weight 80.5 kg
Pertinent Past Medical History: Chronic Opiate dependence/abuse
- Vital Signs / Lab Results
Temp Pulse Resp BP Pulse Ox
101 F H 120 24 142/82 97
04/16/23 08:44 04/16/23 06:30 04/16/23 06:30 04/16/23 06:00 04/16/23 06:30
Lab Results - Hematology
04/15/23 04/16/23
20:27 03:52
WBC 26.4 H 19.1 H
Lab Results - Chemistry
04/15/23 04/16/23
20:27 03:52
BUN 19 19
Creatinine 1.2 1.1
Estimated Creat Clear 90 98
Albumin 5.0 4.1
04/16/23
03:52
Lactic Acid 1.3
Lab Results - Urine
04/16/23
04:03
Urine Nitrite (Reflex) Negative
Leukocyte Esterase Rfl Negative
--- NOTE | 2023-04-16 09:32 | PTCARENOTE ---
Assumed care at 0700. Sinus tachycardia noted. COWS 19-23. Plan of care discussed. Precedex and D55 1/2NSS at 125. Shackled to bed at LLE with correctional guards present. No N/V/D at this time. Tolerating almita subha.
[2023-04-16 09:42] LABS: Procalcitonin 0.27 ng/ml (0.0-0.25)
[2023-04-16] MEDS: ZANAFLEX 2 MG PO ×2 (10:10→16:44)
[2023-04-16] MEDS: CATAPRES 0.100000000000000006 MG PO ×3 (11:45→23:35)
[2023-04-16] MEDS: NSS (PRESERVATIVE FREE) 10 ML IV ×2 (11:45→20:09)
[2023-04-16] MEDS: PROTONIX IV 40 MG IV ×2 (11:46→20:09)
--- NOTE | 2023-04-16 12:16 | PTCARENOTE ---
Pt given Zanaflex, clonidine, and hydralizine. HR down to 110-120s. Appears more restfull. Tolerating clears without issue.
--- NOTE | 2023-04-16 13:29 | CS.PSYCHR ---
Consult Summary - Psychiatry
-
Pt is 42 yo male, brought from [facility] for opioid withdrawal symptoms. Pt reported using Fentanyl daily, last use the day before admission. Pt started on Buprenorphine protocol. Pt seen with correctional officers present. Pt remained with sheet
over his head, appears to be shivering. No other signs of distress; pt gave a few one-word answers. He indicated some previous mental health issues, would not elaborate, denies being on any prescribed medications. UDS after admission (after
given Subutex) +Op, Bup, Fty, Bay.
Psych Hx: unable to obtaine
MSE: awake with sheet over his head, not making eye contact, appears to be shivering. Limited interaction, one-word responses. No agitation, no overt psychosis
Imp: Opioid Use d/o, severe
Rec: continue Subutex Protocol
Will follow
--- NOTE | 2023-04-16 15:39 | CM ---
CM following re: discharge planning.
Discussed in rounds, reviewed pt's chart, met with pt and 2 guards at bedside.
Pt is a 42 year old male, admitted from [facility] with primary dx of opioid withdrawal symptoms.
Per guards, pt will be transported back to [facility] when pt is medically stable.
[facility] nursing report: [phone]
Discharge instructions fax: [phone]
D/C plan: return back to [facility]. Guards to transport.
[2023-04-16] MEDS: VANCOCIN 275 MG IV (17:28)
--- NOTE | 2023-04-16 20:56 | PTCARENOTE ---
pt received from previous rn- aox4, flat affect, on room air, remains sinus tachy on monitor. all safety precautions in place. call shaffer within reach. Shackled to bed at E with correctional guards present. denies nausea at this time. precedex gtt
and ivf continue. cows 23.
[2023-04-16] MEDS: NSS (PRESERVATIVE FREE) 0.5 ML IV (21:10)
--- NOTE | 2023-04-16 23:45 | PTCARENOTE ---
assessment unchanged. cows remains at 19. pt refusing pm care and bed change at this time.
[2023-04-17] VITALS (20 sets, daily range): BP systolic 109–178; BP diastolic 59–108; PULSE 75; BMI 24.8
[2023-04-17] MEDS: PRECEDEX 100 IV (03:46)
[2023-04-17] MEDS: D5/0.45%NACL 1000 IV ×2 (03:47→16:45)
[2023-04-17 04:27] LABS: % Basophils 0.2 % (0-2); % Eosinophils 0.3 % (0-6); % Immature Granulocytes 0.4 % (0-0.5); % Lymphocytes 7.6 % (20.5-51.1); % Monocytes 9.5 % (1.7-9.3); Absolute Eosinophils 0.1 10^3/uL (0-0.7); Absolute Immature Granulocytes 0.1 10^3/uL (0-0.05); Absolute Lymphocytes 1.2 10^3/uL (1.2-3.4); Absolute Monocytes 1.5 10^3/uL (0.1-0.6); Absolute Neutrophils 12.7 10^3/uL (1.4-6.5); Hematocrit 41.1 % (39.0-52.0); Hemoglobin 13.7 g/dL (13.0-18.0); Mean Corp Hgb Conc. 33.3 g/dL (33.0-37.0); Mean Corpuscular Hgb 27.2 pg (27.0-31.0); Mean Corpuscular Volume 81.5 fL (80.0-94.0); Mean Platelet Volume 9.3 fL (7.4-10.4); Nucleated Red Blood Cells % 0 % (-); Platelet Count 414 10^3/uL (130-400); Red Blood Cell Count 5.04 10^6/uL (4.70-6.10); Red Cell Dist. Width 13.1 % (11.5-14.5); White Blood Cell Count 15.4 10^3/uL (4.8-10.8)
--- NOTE | 2023-04-17 04:46 | PTCARENOTE ---
pt assisted with full am care, precedex and fluids continue. no change in assesment. cows score 15.
[2023-04-17 05:12] LABS: ALT (SGPT) 21 U/L (0-50); AST (SGOT) 44 U/L (17-59); Alkaline Phosphatase 74 U/L (38-126); Blood Urea Nitrogen 12 mg/dl (9-20); Calcium 9.8 mg/dl (8.4-10.2); Carbon Dioxide 23 mmol/L (22-30); Chloride 107 mmol/L (98-107); Estimated Creatinine Clearance 120 ml/min; Glucose 128 mg/dl (70-99); Potassium 4.1 mmol/L (3.5-5.1); Sodium 143 mmol/L (135-145); Total Bilirubin 1.2 mg/dl (0.2-1.3); Total Protein 7.7 g/dl (6.3-8.2); eGFR > 60.00
[2023-04-17] MEDS: VANCOCIN 275 MG IV ×2 (05:24→16:58)
[2023-04-17] MEDS: CATAPRES 0.100000000000000006 MG PO ×3 (05:24→16:57)
--- NOTE | 2023-04-17 07:09 | W.PN.INTV ---
Today's Communication / Plan
Recommendations
Doing well, improving from w/d standpoint
Remained stable overnight
Can transfer to floors per team, we will sign off upon transfer
Assessment
-
Patient is a 42-year-old male with h/o polysubstance abuse, depression who presents to ED from long term with complaints of diaphoresis, nausea/vomiting, diarrhea, tremors/restlessness with clinical suspicion of acute opiate withdrawal.� Patient was
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 He is admitted to ICU for acute management of
opiate withdrawal.
Acute severe opioid withdrawal requiring ICU care/monitoring
Severe acute opiate abuse history, IV fentanyl use, '50 bags daily'
Vomiting with coffee grounds with likely acute dehydration
Leukocytosis
Low grade fever
Thrombocytosis
Iron deficiency
Ketonuria
UDS + fent/cocaine/buprenorphine/opiates
Sinus tachycardia
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
Polysubstance abuse (Meth/Fent)
Incarcerated status
Depression
HTN
Hepatitis C
Renal calculus removal X 2
Cigarette smoker
Plan
Acute opiate withdrawal requiring IV treatment and q1 monitoring with COWS
Prompt treatment needed to prevent potential risk for neurologic end organ damage including seizure/coma/
Now improving
Baseline MS reported as aaox 3
Psychiatric history noted above including depression, severe drug history
UDS + fent/cocaine/buprenorphine/opiates
Denies pain at this time.
Pain/sedation: on opiate w/d protocol, reviewed with pharmacy/care team
RASS goals: 0
In restraints, with guards
Hemodynamically stable, not requiring pressors.
Tach noted due to w/d
Cardiac history reviewed--HTN
No prior ECHO for review
Resume home meds, monitor on telemetry
Monitor QT
Oxygen needs: stable on RA
Prior history of lung disease: none
Smoker, cessation encouraged, NRT as needed
Supplemental O2 as indicated to maintain sats > 89%
CXR/CT reviewed indicating NAD
Diet advancement
Hep C positive, history of IVDU
Flood Control Engineer recommendations if needed
Aspiration precautions, HOB > 30 degrees
Speech therapy eval can be considered if at elevated risk
GI prophylaxis if indicated for mechanical ventilation >48 hours, prior history of GERD, stress ulcer formation in the critically ill
Creat at baseline, no history of renal disease
Void trials
Follow urine output, critical I/Os
Replete electrolytes as needed
No signs/symptoms suspicious for infectious etiology at this time
Observe off antibiotics for now
Follow fever trend, WBC count
CBC stable, no signs of bleeding or coagulopathy.
DVT prophylaxis as assessed based on risk, including mechanical SCDs
Can transfuse if indicated for Hb <7, plt < 10
INR 1.13
No prior h/o diabetes or thyroid disease
Monitor accuchecks PRN/SS coverage if needed
Diagnostic Data
Chest X-Ray: 04/15/23- No acute cardiopulmonary process.
CT Scan:
Echo/EKG 04/15/23- QTc Int : 506 ms/NSR @78
PFT's:
Reports and relevant images were personally reviewed.
-----
Critical Care time 32 mins -- The patient is admitted for acute critical illness for the treatment of vital organ failure and/or prevention of further life-threatening conditions. Total care includes time spent in review of history, physical exam,
medications, hemodynamic/ventilator parameters, laboratory data, imaging and discussion with house staff, pharmacy, respiratory therapy, change consultant, and nursing.
Subjective Dataa
Subjective Data
Date of Service:
Date of Service: April 17, 2023
Chief Complaint: Shorts Sifter Follow Up
Subjective:
Doing well today, no acute events ON
No new complaints
Objective Data
Data Reviewed
Vital Signs / I&O / Oxygen:
Vital Signs
Temp Pulse Resp BP Pulse Ox
98.9 F 90 23 138/90 98
04/17/23 03:41 04/17/23 06:00 04/17/23 06:00 04/17/23 06:00 04/17/23 06:00
Intake and Output
04/16/23 04/17/23 04/18/23
06:59 06:59 06:59
Intake Total 842 / 842 8222.5 / 8222.5
Output Total 250 / 250 1000 / 1000
Balance 592 / 592 7222.5 / 7222.5
SaO2 98
Nasal Cannula flow liters per 2
minute
Physical Exam
General: Comfortable and Other (NAD)
HEENT: Normocephalic, Anicteric and Moist Mucous Membranes
Cardiovascular: S1-S2 and Regular Rhythm
Respiratory: Clear and Non-Labored Respirations
GI: Soft, Non Distended and Non Tender
Neurology: Awake, Alert, Oriented, AO x 3 and No Motor Deficits
Skin: Warm and Dry
Labs/Micro/Reports
Lab Data
04/17/23 03:53
04/17/23 03:53
Microbiology
04/15/23 23:25 Blood/Venous Blood Culture - Preliminary
No Growth in 24 hours- Final report to follow
04/15/23 23:25 Blood/Venous Blood Culture - Preliminary
No Growth in 24 hours- Final report to follow
[2023-04-17] MEDS: PROTONIX IV 40 MG IV (07:31)
[2023-04-17] MEDS: NSS (PRESERVATIVE FREE) 10 ML IV (07:31)
[2023-04-17] MEDS: STERILE WATER FOR INJECTION 10 ML IV ×2 (07:31→16:46)
[2023-04-17] MEDS: ZANAFLEX 2 MG PO (07:32)
[2023-04-17] MEDS: MAXIPIME 2000 MG IV ×2 (07:32→16:46)
--- NOTE | 2023-04-17 07:55 | W.PN.HOSP.TC ---
Addendum entered and electronically signed by Shravan Santos DO 04/17/23 08:00:
If he comes off Precedex today, can transfer out to telemetry. Discussed with nursing.
Original Note:
Today's Communication/Plan
-
Continue current care
Assessment / Plan
Assessment / Plan
Gen-sleepy
HEENT-NC, AT, anicteric, clear oral mm
Neck-supple
CV-reg, no M, +S1/S2
Lungs-clear B/L
Abd-soft, NT, ND
Ext-no edema
Musculoskeletal-no cyanosis, clubbing
Skin-warm and dry
Neuro-grossly non-focal
Psych-calm, cooperative
Acute opioid withdrawal syndrome -continue close monitoring in ICU. Continue COWS protocol. Continue Precedex, wean down as able. Clinically improving on as needed tizanidine, Subutex.
Sepsis -possibly related to acute opioid withdrawal syndrome. No obvious focus of infection. Continue empiric antibiotics for now. Blood cultures negative so far. Mild procalcitonin elevation noted. Suspect fever and leukocytosis likely
inflammatory reaction due to acute opioid withdrawal.
Coffee-ground emesis -hemoglobin relatively stable. Monitor. Continue IV Protonix. Differential diagnosis includes Aiyana-Krause tear from vomiting. GI recommends conservative management. They signed off. Hemoglobin normal.
Chronic opiate dependence/abuse -psychiatry following.
Full code.
Anticipated Discharge: > 48 hours
Subjective/Interval History
-
Date of Service: April 17, 2023
Patient seen and examined. No complaints. Does not want to be bothered.
Objective Data
-
Labs:
Laboratory Results
04/17/23
03:53
WBC 15.4 H
Hgb 13.7
Hct 41.1
Plt Count 414 H
Sodium 143
Potassium 4.1
Chloride 107
Carbon Dioxide 23
BUN 12
Creatinine 0.9
Glucose 128 H
Calcium 9.8
Total Bilirubin 1.2
AST 44
ALT 21
Alkaline Phosphatase 74
Vital Signs:
Vital Signs
Temp Pulse Resp BP Pulse Ox
98.7 F 90 23 138/90 98
04/17/23 07:34 04/17/23 06:00 04/17/23 06:00 04/17/23 06:00 04/17/23 06:00
I&O
04/16/23 04/17/23 04/18/23
06:59 06:59 06:59
Intake Total 842 / 842 8222.5 / 8305.6 83.1 / 83.1
Output Total 250 / 250 1000 / 1000
Balance 592 / 592 7222.5 / 7305.6 83.1 / 83.1
Review of Systems
-
Unable to obtain full review of systems at this time due to: Acuity
History Source: Patient
All other systems: Reviewed and negative
--- NOTE | 2023-04-17 08:23 | PTCARENOTE ---
pt received from previous rn- aox4, flat affect, on room air, remains sinus rhythm on monitor. all safety precautions in place. call shaffer within reach. Shackled to bed at E with correctional guards present. denies nausea at this time. precedex gtt
decreased. ivf continue. cows 11.
[2023-04-17] MEDS: SUBUTEX 16 MG SL (10:59)
--- NOTE | 2023-04-17 11:15 | PHA.VAN.FU ---
Vancomycin Assessment / Plan
- Assessment
Renal Function: Stable
WBC's are: Trending Down
In the past 24 hrs, patient has been: Afebrile
Concomitant Antimicrobials: cefepime
- Dosing Plan
Continue: Vanc 1250mg Q12H
- Monitoring Plan
No level(s) ordered at this time: consider levels in next few days
- Follow Up
Pharmacy will continue to follow.
Vancomycin Follow UP
- -
Patient Age: 42
Patient Sex: Male
Vancomycin Day #: 2
Indication: Bacteremia
Requesting Provider: Florence Schneider
Pertinent Antimicrobial Allergies:
NKDA
Height / Weight:
Height 6 ft
Actual Weight 83 kg
Pertinent Past Medical History: Chronic Opiate dependence/abuse
- Vital Signs / Lab Results
Temp Pulse Resp BP Pulse Ox
98.7 F 127 20 133/88 99
04/17/23 07:34 04/17/23 11:00 04/17/23 11:00 04/17/23 11:00 04/17/23 10:00
Lab Results - Hematology
04/15/23 04/16/23 04/17/23
20:27 03:52 03:53
WBC 26.4 H 19.1 H 15.4 H
Lab Results - Chemistry
04/15/23 04/16/23 04/17/23
20:27 03:52 03:53
BUN 19 19 12
Creatinine 1.2 1.1 0.9
Estimated Creat Clear 90 98 120
Albumin 5.0 4.1 4.0
04/16/23
03:52
Lactic Acid 1.3
Microbiology Results
04/16/23 03:52 MRSA Screen - Final
Nose Staph aureus MRSA
04/15/23 23:25 Blood Culture - Preliminary
Blood/Venous No Growth in 24 hours- Final report to follow
04/15/23 23:25 Blood Culture - Preliminary
Blood/Venous No Growth in 24 hours- Final report to follow
--- NOTE | 2023-04-17 14:30 | W.PN.UPDATE ---
Update Note
Progress Note Update
Pt seen, lying on side with limited interaction, states a little better but continues to have opioid withdrawal. C/o nausea/ stomach upset. Pt taking Subutex, clonidine, has prn's available. Pt denies other mental health issues at present, but he
does not engage in conversation. Not able to fully assess.
Imp: �Opioid Use d/o, severe
Rec:� continue Subutex Protocol, prn's for opioid w/d symptoms. Anticipate return to [facility] when medically stable.
� � � Will follow
--- NOTE | 2023-04-17 17:35 | PTCARENOTE ---
Received patient to room 432, awake and alert. Able to make needs known. oriented to room , able to make needs known . Call shaffer in reach.
[2023-04-17] MEDS: TYLENOL 650 MG PO (20:08)
[2023-04-17] MEDS: NSS (PRESERVATIVE FREE) IV (20:14)
[2023-04-18] MEDS: CATAPRES 0.100000000000000006 MG PO ×4 (00:01→21:07)
[2023-04-18] MEDS: MAXIPIME 2000 MG IV ×2 (00:02→07:42)
[2023-04-18] MEDS: STERILE WATER FOR INJECTION 10 ML IV ×2 (00:02→07:42)
[2023-04-18] MEDS: ATIVAN 1 MG IV (00:24)
[2023-04-18] MEDS: NSS (PRESERVATIVE FREE) 0.5 ML IV (00:24)
[2023-04-18] MEDS: ZOFRAN 4 MG IV (00:24)
[2023-04-18 03:40] VITALS: BP 116/75
[2023-04-18] MEDS: VANCOCIN 275 MG IV (05:14)
[2023-04-18 07:30] VITALS: BP 120/64
[2023-04-18] MEDS: PROTONIX 40 MG PO (07:42)
[2023-04-18 08:15] LABS: % Basophils 0.3 % (0-2); % Eosinophils 0.6 % (0-6); % Immature Granulocytes 0.4 % (0-0.5); % Lymphocytes 15.2 % (20.5-51.1); % Monocytes 11.6 % (1.7-9.3); % Neutrophils 71.9 % (42.2-75.2); Absolute Eosinophils 0.1 10^3/uL (0-0.7); Absolute Lymphocytes 1.6 10^3/uL (1.2-3.4); Absolute Monocytes 1.2 10^3/uL (0.1-0.6); Absolute Neutrophils 7.6 10^3/uL (1.4-6.5); Hematocrit 40.6 % (39.0-52.0); Mean Corp Hgb Conc. 34.5 g/dL (33.0-37.0); Mean Corpuscular Hgb 27.7 pg (27.0-31.0); Mean Corpuscular Volume 80.2 fL (80.0-94.0); Mean Platelet Volume 9.6 fL (7.4-10.4); Nucleated Red Blood Cells % 0 % (-); Platelet Count 335 10^3/uL (130-400); Red Blood Cell Count 5.06 10^6/uL (4.70-6.10); White Blood Cell Count 10.6 10^3/uL (4.8-10.8)
--- NOTE | 2023-04-18 08:57 | W.PN.HOSP.TC ---
Today's Communication/Plan
-
Await labs
Continue current care
Assessment / Plan
Assessment / Plan
Gen-AAOx3, NAD
HEENT-NC, AT, anicteric, clear oral mm
Neck-supple
CV-reg, no M, +S1/S2
Lungs-clear B/L
Abd-soft, NT, ND
Ext-no edema
Musculoskeletal-no cyanosis, clubbing
Skin-warm and dry
Neuro-grossly non-focal
Psych-calm, cooperative
Acute opioid withdrawal syndrome -much improved today compared to yesterday. Continue COWS protocol. Heart rate has been stable. He has started eating.
Sepsis -possibly related to acute opioid withdrawal syndrome. No obvious focus of infection. Continue empiric antibiotics for now. Blood cultures negative so far. Mild procalcitonin elevation noted. Suspect fever and leukocytosis likely
inflammatory reaction due to acute opioid withdrawal. White blood cell count now normal. Will recheck procalcitonin today, and if normal can discontinue antibiotics.
Coffee-ground emesis -hemoglobin relatively stable. Monitor. Continue po Protonix. Differential diagnosis includes Aiyana-Krause tear from vomiting. GI recommends conservative management. They signed off. Hemoglobin normal.
Chronic opiate dependence/abuse -psychiatry following.
Full code.
Dispo -anticipate discharge back to [facility] tomorrow if he remains stable and improving.
Anticipated Discharge: Within 24 hours
Subjective/Interval History
-
Date of Service: April 18, 2023
Patient seen and examined. Looks and feels better. Complaining of mild withdrawal symptoms.
Objective Data
-
Labs:
Laboratory Results
04/18/23
07:13
WBC 10.6
Hgb 14.0
Hct 40.6
Plt Count 335
Sodium Pending
Potassium Pending
Chloride Pending
Carbon Dioxide Pending
BUN Pending
Creatinine Pending
Glucose Pending
Calcium Pending
Total Bilirubin Pending
AST Pending
ALT Pending
Alkaline Phosphatase Pending
Vital Signs:
Vital Signs
Temp Pulse Resp BP Pulse Ox
98.8 F 80 18 120/64 98
04/18/23 07:30 04/18/23 07:30 04/18/23 07:30 04/18/23 07:30 04/18/23 07:30
I&O
04/17/23 04/18/23 04/19/23
06:59 06:59 06:59
Intake Total 8222.5 / 8305.6 1559.1 / 1559.1
Output Total 1000 / 1000 1400 / 1400
Balance 7222.5 / 7305.6 159.1 / 159.1
Review of Systems
-
History Source: Patient
All other systems: Reviewed and negative
[2023-04-18 09:32] LABS: ALT (SGPT) 20 U/L (0-50); AST (SGOT) 26 U/L (17-59); Albumin 3.8 g/dl (3.5-5.0); Alkaline Phosphatase 80 U/L (38-126); Blood Urea Nitrogen 12 mg/dl (9-20); Calcium 9.5 mg/dl (8.4-10.2); Carbon Dioxide 24 mmol/L (22-30); Chloride 99 mmol/L (98-107); Estimated Creatinine Clearance > 125 ml/min; Glucose 101 mg/dl (70-99); Potassium 3.2 mmol/L (3.5-5.1); Sodium 137 mmol/L (135-145); Total Bilirubin 0.8 mg/dl (0.2-1.3); eGFR > 60.00
[2023-04-18 10:57] LABS: Procalcitonin < 0.05 ng/ml (0.0-0.25)
[2023-04-18 11:00] VITALS: BP 118/78
--- NOTE | 2023-04-18 12:19 | W.PN.UPDATE ---
Update Note
Progress Note Update
patient seen chart reviewed. discussed with nursing and with pharmacy ms harris. the patient continues w sx of opiate wd. he is sweating, has abd cramping, diarrhea, gooseflesh. will start suboxone 16 mg daily cut clonidine to tid encourage prn
tizanidine given xylazine contamination of a lot of the fentanyl on the street. patient does have hx of rx for depression. last rehab at [facility] one year ago was there for 30 days placed on zoloft. was sober only two weeks after dc. he does sound
motivated to try rehab again after he gets through his legal issues. will follow
[2023-04-18 12:23] LABS: Magnesium 1.6 mg/dl (1.6-2.3)
--- NOTE | 2023-04-18 12:44 | CM ---
preparation room manager continues to follow with patient progress and plan for patient is to return to [facility] when stable.
[facility]
Report [phone]
[2023-04-18] MEDS: KCL 40 MEQ PO (12:56)
[2023-04-18] MEDS: SUBUTEX 16 MG SL (12:57)
[2023-04-18 15:15] VITALS: BP 111/76
[2023-04-18 19:25] VITALS: BP 126/78
[2023-04-18 23:30] VITALS: BP 123/84
[2023-04-19 03:37] VITALS: BP 122/71
[2023-04-19 07:30] VITALS: BP 116/72
[2023-04-19] MEDS: SUBUTEX 16 MG SL (08:00)
[2023-04-19] MEDS: PROTONIX 40 MG PO (08:00)
[2023-04-19] MEDS: CATAPRES 0.100000000000000006 MG PO ×2 (08:00→16:00)
[2023-04-19 10:30] VITALS: BP 106/63
--- NOTE | 2023-04-19 11:08 | CM ---
parking lot manager reviewed patient's chart and patient was admitted from [facility] and plan is to return to [facility] when stable.
[facility]
Report [phone]
--- NOTE | 2023-04-19 11:14 | W.PN.HOSP.TC ---
Addendum entered and electronically signed by Shravan Santos DO 04/19/23 13:00:
Hypokalemia -treated
Original Note:
Today's Communication/Plan
-
Bowel regimen
Assessment / Plan
Assessment / Plan
Gen-AAOx3, NAD
HEENT-NC, AT, anicteric, clear oral mm
Neck-supple
CV-reg, no M, +S1/S2
Lungs-clear B/L
Abd-soft, mild tenderness, no guarding or rebound
Ext-no edema
Musculoskeletal-no cyanosis, clubbing
Skin-warm and dry
Neuro-grossly non-focal
Psych-calm, cooperative
Acute opioid withdrawal syndrome -much improved today compared to yesterday. Continue COWS protocol. Withdrawal symptoms much improved. Now on buprenorphine standing doses, to continue on discharge. Discussed with psychiatry Dr. Menendez.
Sepsis -possibly related to acute opioid withdrawal syndrome. Sepsis resolved. Blood cultures negative. Antibiotics discontinued. Repeat procalcitonin normal.
Constipation -due to opioids, limited mobility as he is shackled to the bed. Bowel regimen ordered.
Coffee-ground emesis -hemoglobin relatively stable. Monitor. Continue po Protonix. Differential diagnosis includes Aiyana-Krause tear from vomiting. GI recommends conservative management. They signed off. Hemoglobin normal.
Chronic opiate dependence/abuse -psychiatry following.
Full code.
Dispo -anticipate discharge back to [facility] after he has a bowel movement.
Anticipated Discharge: Within 24 hours
Subjective/Interval History
-
Date of Service: April 19, 2023
Patient seen and examined. Complaining of abdominal discomfort. Constipation.
Objective Data
-
Vital Signs:
Vital Signs
Temp Pulse Resp BP Pulse Ox
98.7 F 86 18 106/63 99
04/19/23 10:30 04/19/23 10:30 04/19/23 10:30 04/19/23 10:30 04/19/23 10:30
I&O
04/18/23 04/19/23 04/20/23
06:59 06:59 06:59
Intake Total 1559.1 / 1559.1 1999 250 / 250
Output Total 1400 / 1400 950 / 950
Balance 159.1 / 159.1 1050 / 1050 250 / 250
Review of Systems
-
History Source: Patient
All other systems: Reviewed and negative
--- NOTE | 2023-04-19 11:21 | W.DS.TRANS ---
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
-
Discharge Instructions:
Discharge Diagnosis/Procedures Opiate withdrawal syndrome, constipation
Diet Regular
Activity As tolerated
Driving Restrictions No driving
Bathing Restrictions None
Instructions:
Stand-Alone Forms:
Changes to Home Medications: No
Discharge Medications:
DC Medications w/original date entered in [facility]
buprenorphine HCl 8 mg sublingual tablet 16 mg sublingual DAILY #10 tabs 04/19/23
clonidine HCl 0.1 mg tablet 0.1 mg PO TID #0 tabs 04/19/23
docusate sodium 100 mg capsule 100 mg PO BID #0 caps 04/19/23
polyethylene glycol 3350 17 gram oral powder packet (HealthyLax) 17 g PO DAILY #0 ea 04/19/23
Home Medication Changes
Pending Results: No
--- NOTE | 2023-04-19 11:29 | PN.CDI ---
CDI
- -
CDI:
Physician Documentation Request
Admit Date: 04/15/23 23:31
Dear Doctor Tom,
Patient admitted for opioid withdrawal.
3/6 Potassium level: 3.2
3/6 Potassium chloride 40 meq administered
Based on the above, could you clarify in the progress notes, the appropriate diagnosis, if significant, that supports the above abnormalities and additional evaluation, monitoring and/or treatment rendered:
Hypokalemia
Abnormal lab insignificant
Other
Use of terms such as suspected, likely, concern for, or probable (associated with a specific diagnosis that is being evaluated, monitored, or treated as if it exists) are acceptable and can be coded in the inpatient setting, when documented at the
time of discharge.
Thank you,
Maggie Moncada RN, BSN
CDI Specialist
Available via Call text
Please use your independent medical judgment in providing your response.
[2023-04-19] MEDS: MIRALAX 17 GRAMS PO (12:00)
[2023-04-19] MEDS: DULCOLAX 10 MG PO (12:00)
[2023-04-19] MEDS: COLACE 100 MG PO ×2 (12:00→20:17)
[2023-04-19 15:30] VITALS: BP 134/92
[2023-04-19] MEDS: RELISTOR 12 MG SC (16:00)
[2023-04-19 19:59] VITALS: BP 109/71
[2023-04-19] MEDS: CATAPRES PO (22:42)
[2023-04-20] VITALS (7 sets, daily range): BP systolic 98–133; BP diastolic 67–91
[2023-04-20] MEDS: MIRALAX 17 GRAMS PO ×2 (08:40→20:17)
[2023-04-20] MEDS: SUBUTEX 16 MG SL (08:45)
[2023-04-20] MEDS: PROTONIX 40 MG PO (08:50)
[2023-04-20] MEDS: SENOKOT 17.1999999999999993 MG PO ×2 (08:50→20:17)
[2023-04-20] MEDS: COLACE 100 MG PO ×2 (08:51→20:17)
[2023-04-20] MEDS: CATAPRES 0.100000000000000006 MG PO ×3 (08:51→21:43)
[2023-04-20] MEDS: CITROMA 300 ML PO (11:00)
--- NOTE | 2023-04-20 11:14 | CM ---
Chart reviewed and plan is for patient to return to [facility]
Report [phone]
--- NOTE | 2023-04-20 12:19 | W.PN.HOSP.TC ---
Today's Communication/Plan
-
Continue bowel regimen
Assessment / Plan
Assessment / Plan
Gen-AAOx3, NAD
HEENT-NC, AT, anicteric, clear oral mm
Neck-supple
CV-reg, no M, +S1/S2
Lungs-clear B/L
Abd-soft, mild tenderness, no guarding or rebound
Ext-no edema
Musculoskeletal-no cyanosis, clubbing
Skin-warm and dry
Neuro-grossly non-focal
Psych-calm, cooperative
Acute opioid withdrawal syndrome -much improved today compared to yesterday. Continue COWS protocol. Withdrawal symptoms much improved. Now on buprenorphine standing doses, to continue on discharge. Discussed with psychiatry Dr. Menendez.
Sepsis -possibly related to acute opioid withdrawal syndrome. Sepsis resolved. Blood cultures negative. Antibiotics discontinued. Repeat procalcitonin normal.
Constipation -due to opioids, limited mobility as he is shackled to the bed. Bowel regimen ordered. At baseline patient also suffers from constipation, may have IBS but certainly his opioid abuse contributing. Mag citrate ordered. Abdominal
x-ray today negative for obstruction. Continue MiraLAX, Senokot, Colace. No significant response with a dose of Relistor yesterday.
Coffee-ground emesis -hemoglobin relatively stable. Monitor. Continue po Protonix. Differential diagnosis includes Aiyana-Krause tear from vomiting. GI recommends conservative management. They signed off. Hemoglobin normal.
Chronic opiate dependence/abuse -psychiatry following.
Full code.
Dispo -anticipate discharge back to [facility] after he has a bowel movement.
Anticipated Discharge: Within 24 hours
Subjective/Interval History
-
Date of Service: April 20, 2023
Patient seen and examined. Still with abdominal discomfort, constipation.
Objective Data
-
Labs:
Laboratory Results
04/20/23
10:14
WBC Pending
Hgb Pending
Hct Pending
Plt Count Pending
Sodium Pending
Potassium Pending
Chloride Pending
Carbon Dioxide Pending
BUN Pending
Creatinine Pending
Glucose Pending
Calcium Pending
Total Bilirubin Pending
AST Pending
ALT Pending
Alkaline Phosphatase Pending
Vital Signs:
Vital Signs
Temp Pulse Resp BP Pulse Ox
99 F 129 20 129/91 98
04/20/23 11:22 04/20/23 11:22 04/20/23 11:22 04/20/23 11:22 04/20/23 11:22
I&O
04/19/23 04/20/23 04/21/23
06:59 06:59 06:59
Intake Total 2000 / 2000 980 / 980
Output Total 950 / 950 275 / 275
Balance 1050 / 1050 705 / 705
Review of Systems
-
History Source: Patient
All other systems: Reviewed and negative
[2023-04-20 13:24] LABS: % Basophils 0.6 % (0-2); % Eosinophils 0.7 % (0-6); % Immature Granulocytes 0.7 % (0-0.5); % Lymphocytes 19.1 % (20.5-51.1); % Monocytes 10.1 % (1.7-9.3); % Neutrophils 68.8 % (42.2-75.2); Absolute Basophils 0.1 10^3/uL (0-0.2); Absolute Eosinophils 0.1 10^3/uL (0-0.7); Absolute Immature Granulocytes 0.1 10^3/uL (0-0.05); Absolute Lymphocytes 1.8 10^3/uL (1.2-3.4); Absolute Neutrophils 6.5 10^3/uL (1.4-6.5); Hematocrit 47.5 % (39.0-52.0); Hemoglobin 16.3 g/dL (13.0-18.0); Mean Corp Hgb Conc. 34.3 g/dL (33.0-37.0); Mean Corpuscular Hgb 27.5 pg (27.0-31.0); Mean Corpuscular Volume 80.2 fL (80.0-94.0); Mean Platelet Volume 9.8 fL (7.4-10.4); Nucleated Red Blood Cells % 0 % (-); Platelet Count 331 10^3/uL (130-400); Red Blood Cell Count 5.92 10^6/uL (4.70-6.10); Red Cell Dist. Width 12.8 % (11.5-14.5); White Blood Cell Count 9.5 10^3/uL (4.8-10.8)
[2023-04-20 13:44] LABS: ALT (SGPT) 31 U/L (0-50); AST (SGOT) 32 U/L (17-59); Albumin 4.5 g/dl (3.5-5.0); Alkaline Phosphatase 82 U/L (38-126); Blood Urea Nitrogen 19 mg/dl (9-20); Calcium 9.8 mg/dl (8.4-10.2); Carbon Dioxide 29 mmol/L (22-30); Chloride 100 mmol/L (98-107); Estimated Creatinine Clearance > 125 ml/min; Glucose 119 mg/dl (70-99); Potassium 4.9 mmol/L (3.5-5.1); Sodium 135 mmol/L (135-145); Total Bilirubin 1.1 mg/dl (0.2-1.3); Total Protein 8.3 g/dl (6.3-8.2); eGFR > 60.00
--- NOTE | 2023-04-20 18:20 | PTCARENOTE ---
At 16:30 pt reported having had a moderate to lg BM. When ambulating to anf from bathroom, pt became tachycardic. HR going up to 170. Pt said he felt light headed.
[2023-04-20] MEDS: NSS 500 IV (20:12)
[2023-04-20] MEDS: NSS 1000 IV (21:34)
--- NOTE | 2023-04-21 03:39 | PTCARENOTE ---
Pt IV infiltrated. NSS stopped and disconnected. IV team notified. Unable to get new IV in place. Pt needed US to get initial IV in place. OUTDOOR ADVENTURE INSTRUCTOR notified, will continue to monitor
[2023-04-21 03:50] VITALS: BP 120/84
[2023-04-21 07:00] VITALS: BP 107/67
[2023-04-21] MEDS: MIRALAX 17 GRAMS PO (08:43)
[2023-04-21] MEDS: CATAPRES 0.100000000000000006 MG PO ×2 (08:43→15:15)
[2023-04-21] MEDS: PROTONIX 40 MG PO (08:43)
[2023-04-21] MEDS: COLACE 100 MG PO (08:43)
[2023-04-21] MEDS: SUBUTEX 16 MG SL (08:43)
[2023-04-21] MEDS: SENOKOT 17.1999999999999993 MG PO (08:43)
--- NOTE | 2023-04-21 08:50 | PTCARENOTE ---
COWS discontinued as patient is prepared for discharge per provider.
[2023-04-21] MEDS: NSS IV (08:51)
--- NOTE | 2023-04-21 08:54 | W.PN.HOSP.TC ---
Addendum entered and electronically signed by Shravan Santos DO 04/21/23 14:51:
Orthostatic vitals improved with IV fluids.
Encourage p.o. fluids and can discharge back to [facility] today. Continue bowel regimen on discharge. Outpatient follow-up.
Original Note:
Today's Communication/Plan
-
Resume IV fluids
Orthostatic vitals
Assessment / Plan
Assessment / Plan
Gen-AAOx3, NAD
HEENT-NC, AT, anicteric, clear oral mm
Neck-supple
CV-reg, no M, +S1/S2
Lungs-clear B/L
Abd-soft, mild tenderness, no guarding or rebound
Ext-no edema
Musculoskeletal-no cyanosis, clubbing
Skin-warm and dry
Neuro-grossly non-focal
Psych-calm, cooperative
Acute opioid withdrawal syndrome -much improved today compared to yesterday. Continue COWS protocol. Withdrawal symptoms much improved. Now on buprenorphine standing doses, to continue on discharge. Discussed with psychiatry Dr. Menendez.
Sepsis -possibly related to acute opioid withdrawal syndrome. Sepsis resolved. Blood cultures negative. Antibiotics discontinued. Repeat procalcitonin normal.
Constipation -due to opioids, limited mobility as he is shackled to the bed. Bowel regimen ordered. At baseline patient also suffers from constipation, may have IBS but certainly his opioid abuse contributing. Finally had a bowel movement at 6 PM
last night.
Orthostatic hypotension -due to volume depletion due to poor oral intake from anorexia and constipation. IV infiltrated last night and he only received 1 L of fluids out of 2 L that was ordered. Discussed with nurse this morning, will resume IV
fluids at 200 cc/h x 1 L. Recheck orthostatics.
Coffee-ground emesis -hemoglobin relatively stable. Monitor. Continue po Protonix. Differential diagnosis includes Aiyana-Krause tear from vomiting. GI recommends conservative management. They signed off. Hemoglobin normal.
Chronic opiate dependence/abuse -psychiatry following.
Full code.
Dispo -anticipate discharge back to [facility] once medically stable.
Anticipated Discharge: Within 24 hours
Subjective/Interval History
-
Date of Service: April 21, 2023
Patient seen and examined. Complaining of lightheadedness. Not complaining of abdominal pain.
Objective Data
-
Vital Signs:
Vital Signs
Temp Pulse Resp BP Pulse Ox
98.1 F 93 16 107/67 96
04/21/23 03:50 04/21/23 08:43 04/21/23 03:50 04/21/23 08:43 04/21/23 03:50
I&O
04/20/23 04/21/23 04/22/23
06:59 06:59 07:59
Intake Total 980 / 980 1884 / 1884
Output Total 275 / 275 1225 / 1225
Balance 705 / 705 659 / 659
Review of Systems
-
History Source: Patient
All other systems: Reviewed and negative
[2023-04-21] MEDS: NSS 1000 IV (09:49)
[2023-04-21 11:00] VITALS: BP 109/62
[2023-04-21 14:33] VITALS: BP 109/62; BP 117/76; BP 118/83; PULSE 105; PULSE 116; PULSE 139
--- NOTE | 2023-04-21 14:51 | W.DS.TRANS ---
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
-
Discharge Instructions:
Discharge Diagnosis/Procedures Opiate withdrawal syndrome, constipation
Diet Regular
Activity As tolerated
Driving Restrictions No driving
Bathing Restrictions None
Instructions:
Stand-Alone Forms:
Changes to Home Medications: No
Discharge Medications:
DC Medications w/original date entered in [place]
buprenorphine HCl 8 mg sublingual tablet 16 mg sublingual DAILY #10 tabs 04/19/23
clonidine HCl 0.1 mg tablet 0.1 mg PO TID #0 tabs 04/19/23
docusate sodium 100 mg capsule 100 mg PO BID #0 caps 04/19/23
polyethylene glycol 3350 17 gram oral powder packet (HealthyLax) 17 g PO BID #0 ea 04/21/23
sennosides 8.6 mg tablet (Senna Laxative) 17.2 mg PO BID #0 tabs 04/21/23
Home Medication Changes
Pending Results: No
[2023-04-21 15:00] VITALS: BP 124/73
--- NOTE | 2023-04-21 16:19 | CM ---
Pt for dc back to [facility]. No further needs identified.
== END 2023-04-21 18:55 | DRG 896 ==
LOC: 4 WEST ACU 23:31
PROVIDERS: Clinical Nurse Specialist Family Health; Nurse Practitioner Family; ADMITTING PHYSICIAN Internal Medicine; ATTENDING PHYSICIAN Hospitalist; EMERGENCY PHYSICIAN Emergency Medicine; OTHER PHYSICIAN Internal Medicine; OTHER PHYSICIAN Psychiatry & Neurology Psychiatry
DX: F11.23 Opioid dependence with withdrawal (principal); A41.9 Sepsis, unspecified organism; F17.210 Nicotine dependence, cigarettes, uncomplicated; E86.0 Dehydration; D75.839 Thrombocytosis, unspecified; E61.1 Iron deficiency; F15.10 Other stimulant abuse, uncomplicated; E87.6 Hypokalemia; K59.00 Constipation, unspecified; I95.1 Orthostatic hypotension; E86.9 Volume depletion, unspecified; K59.03 Drug induced constipation; T40.2X5A Adverse effect of other opioids, initial encounter
CPT/HCPCS: 71045; 74022; 80053; 80306; 80307; 81003; 82077; 82248; 82728; 83540; 83550; 83605; 83735; 84145; 84484; 85025; 85610; 85730; 87040; 87070; 87147; 93005; 96361; 96374; 99285